=== PATIENT | female | born 1945 | race Caucasian/White ===

== ENCOUNTER → 2016-11-19 | Outpatient (CLI) | payer MEDICARE ==
[~2016-11-19] MED LIST: AGM875T PO; AMOX875T2 PO; ASPI-84 PO; ATOR10TA PO; CHLO4TAB PO; CYCL10TA9 PO; GLYB5TAB3 PO; INSU100C7 SQ; IRB150T; IRBE1TAB15 PO; MECL-124 PO; MTF500T PO; MTP25TSR PO; NF-CIPDEC LEFT EAR; NFVALS90T; OLME20TA5 PO; ROSU5TAB PO; SULF1TAB38 PO; TRAM50TA2 PO
[2016-11-19 12:12] LABS: BASOPHILS % (AUTO) 0 % (0-10); EOSINOPHILS # (AUTO) 0.2 10^3/uL (0.0-0.3); EOSINOPHILS % (AUTO) 2 % (0-10); LYMPHOCYTES # (AUTO) 1.8 X 10^3 (1.0-4.0); LYMPHOCYTES % (AUTO) 24 % (12-44); MEAN CORPUSCULAR HEMOGLOBIN 29 PG (25-34); MEAN CORPUSCULAR HGB CONC 35 G/DL (32-36); MEAN CORPUSCULAR VOLUME 85 FL (80-99); MEAN PLATELET VOLUME 10.9 FL (7.4-10.4); MONOCYTES # (AUTO) 0.4 X 10^3 (0.0-1.0); MONOCYTES % (AUTO) 5 % (0-12); NEUTROPHILS # (AUTO) 5.3 X 10^3 (1.8-7.8); NEUTROPHILS % (AUTO) 69 % (42-75); PLATELET COUNT 158 10^3/uL (130-400); RED CELL DISTRIBUTION WIDTH 14.6 % (10.0-14.5); WHITE BLOOD COUNT 7.7 10^3/uL (4.3-11.0)
[2016-11-19 12:33] LABS: BILIRUBIN,TOTAL 0.4 MG/DL (0.1-1.0); CALCIUM 9.9 MG/DL (8.5-10.1); CREATININE SERUM 0.93 MG/DL (0.60-1.30); POTASSIUM 4.2 MMOL/L (3.6-5.0); TOTAL PROTEIN 7.9 G/DL (6.4-8.2)
--- NOTE | 2016-11-19 12:47 | Diagnostic Imaging Report ---
INDICATION: Cough x1 month. EXAMINATION: PA and lateral chest. FINDINGS: Heart size and pulmonary vascularity are normal. The lungs are clear. There are no effusions or pneumothoraces. IMPRESSION: Negative chest. Dictated by: Dictated on workstation # [id number]
== END ==
LOC: RAD 11:34
PROVIDERS: ATTEND Family Medicine
DX: R05 Cough (principal)
CPT/HCPCS: 36415; 71020; 80053; 85025; 87324; 87449

== ENCOUNTER 2017-01-20 08:50 | Emergency (ER) | payer MEDICARE ==
[~2017-01-20] VITALS: Ht 157.5 cm; Wt 76.2 kg
[2017-01-20] MEDS ORDERED: ENAL20TA (09:06)
--- NOTE | 2017-01-20 09:11 | ED General ---
General Chief Complaint: Dizziness/Syncope Stated Complaint: DIZZINESS, THINKS BP IS HIGH Source of Information: Patient History of Present Illness Time Seen by Provider: 09:10 Initial Comments PT ARRIVES VIA POV FROM HOME C/O DIZZINESS SINCE WAKING AT 0330 STATES IS A SPINNING SENSATION NO HEADACHE NO VISION CHANGES NO PARESTHESIAS OR MOTOR DEFICITS NO CHEST PAIN, SHORTNESS OF BREATH OR PALPITATIONS NO FEVER NO RECENT ILLNESS, URI/SINUS SYMPTOMS HAS HISTORY OF THE SAME, AND HAS ANTIVERT BUT DID NOT TAKE ANY PT IS DIABETIC AND BLOOD SUGAR AT 0330 WAS 225--TOOK ALL OF HER REGULAR MEDICATIONS AT THAT TIME. PCP: DR. ROSAS Allergies and Home Medications Allergies Coded Allergies: No Known Drug Allergies (Unverified , 02/13/10) Home Medications Aspirin 81 Mg Tablet.dr, 81 MG PO DAILY, Ref 0 (Reported) Enalapril Maleate 20 Mg Tablet, #180 (Reported) Meclizine Hcl 25 Mg Tab, 25 MG PO TID PRN, Ref 0 (Reported) Metformin Hcl 500 Mg Tablet, 2 EACH PO BID WITH MEALS, Ref 0 (Reported) Metoprolol Succinate 25 Mg Tab.sr.24h, 1 EACH PO DAILY, #30 Prescribed by: HARIKA BURKS on 07/14/12 1729 Rosuvastatin Calcium 5 Mg Tablet, 5 MG PO DAILY, (Reported) Scopolamine 1 Each Patch.td72, 1 EACH TD Q72 HOURS, #3 Prescribed by: WILY KLEIN on 01/20/17 1012 Constitutional: see HPI, No diaphoresis, dizziness, No fever EENTM: no symptoms reported Respiratory: no symptoms reported Cardiovascular: no symptoms reported Gastrointestinal: no symptoms reported Genitourinary: no symptoms reported Musculoskeletal: no symptoms reported Skin: no symptoms reported Psychiatric/Neurological: No Symptoms Reported Hematologic/Lymphatic: No Symptoms Reported Immunological/Allergic: no symptoms reported Past Kfdzrdk-Yhaijg-Fwxbce Hx Patient Social History Alcohol Use: Occasionally Uses Recreational Drug Use: No Smoking Status: Never a Smoker Recent Foreign Travel: No Contact w/Someone Who Travel: No Recent Hopitalizations: No Immunizations Up To Date Date of Pneumonia Vaccine: May 23, 2012 Date of Influenza Vaccine: Feb 16, 2012 Seasonal Allergies Seasonal Allergies: No Surgeries HX Surgeries: No Respiratory Hx Respiratory Disorders: No Cardiovascular Hx Cardiac Disorders: Yes Cardiac Disorders: High Cholesterol, Hypertension, Irregular Heartbeat Neurological Hx Neurological Disorders: Yes Neurological Disorders: Vertigo Reproductive System Hx Reproductive Disorders: No Genitourinary Hx Genitourinary Disorders: Yes Genitourinary Disorders: Kidney Infection Gastrointestinal Hx Gastrointestinal Disorders: No Musculoskeletal Hx Musculoskeletal Disorders: No Endocrine Hx Endocrine Disorders: Yes Endocrine Disorders: Diabetes, Non-Insulin dep HEENT HX ENT Disorders: No Loss of Vision: Bilateral Hearing Impairment: Denies Cancer Hx Cancer: No Psychosocial Hx Psychiatric Problems: No Integumentary HX Skin/Integumentary Disorder: No Blood Transfusions Hx Blood Disorders: No Adverse Reaction to a Blood Tr: No Physical Exam Vital Signs Vital Sign - Last 12Hours 01/20/17 08:54 Temp 96.9 Pulse 81 Resp 18 B/P (MAP) 160/70 Pulse Ox 97 O2 Delivery Room Air Capillary Refill : General Appearance: No Apparent Distress, WD/WN, Other (WALKS WITHOUT DIFFICULTY) HEENT: PERRL/EOMI, TMs Normal, Normal ENT Inspection, Pharynx Normal Neck: Full Range of Motion, Normal Inspection, Non Tender, Supple Respiratory: Normal Breath Sounds, No Accessory Muscle Use, No Respiratory Distress Cardiovascular: Regular Rate, Rhythm, No Murmur, Normal Peripheral Pulses Gastrointestinal: Normal Bowel Sounds, No Organomegaly, No Pulsatile Mass, Non Tender, Soft Extremity: Normal Capillary Refill, Normal Inspection, Normal Range of Motion, Non Tender, No Calf Tenderness, No Pedal Edema Neurologic/Psychiatric: Alert, Oriented x3, No Motor/Sensory Deficits, Normal Mood/Affect, development representative II-XII Norm as Tested, No Abnormal Cerebellar Tests Reflexes: 2+ Bicep (R), 2+ Bicep (L), 2+ Knee (R), 2+ Knee (L) Skin: Normal Color, Warm/Dry Progress/Results/Core Measures Results/Orders Lab Results Laboratory Tests Test 01/20/17 09:30 Range/Units White Blood Count 8.6 4.3-11.0 10^3/uL Red Blood Count 5.07 4.35-5.85 10^6/uL Hemoglobin 14.9 11.5-16.0 G/DL Hematocrit 43 35-52 % Mean Corpuscular Volume 86 80-99 FL Mean Corpuscular Hemoglobin 29 25-34 PG Mean Corpuscular Hemoglobin Concent 34 32-36 G/DL Red Cell Distribution Width 14.2 10.0-14.5 % Platelet Count 160 130-400 10^3/uL Mean Platelet Volume 10.8 H 7.4-10.4 FL Neutrophils (%) (Auto) 66 42-75 % Lymphocytes (%) (Auto) 25 12-44 % Monocytes (%) (Auto) 6 0-12 % Eosinophils (%) (Auto) 3 0-10 % Basophils (%) (Auto) 1 0-10 % Neutrophils # (Auto) 5.7 1.8-7.8 X 10^3 Lymphocytes # (Auto) 2.2 1.0-4.0 X 10^3 Monocytes # (Auto) 0.5 0.0-1.0 X 10^3 Eosinophils # (Auto) 0.2 0.0-0.3 10^3/uL Basophils # (Auto) 0.0 0.0-0.1 10^3/uL Prothrombin Time 13.8 12.2-14.7 SEC INR Comment 1.1 0.8-1.4 Activated Partial Thromboplast Time 27 24-35 SEC Sodium Level 139 135-145 MMOL/L Potassium Level 4.4 3.6-5.0 MMOL/L Chloride Level 104 98-107 MMOL/L Carbon Dioxide Level 22 21-32 MMOL/L Anion Gap 13 5-14 MMOL/L Blood Urea Nitrogen 12 7-18 MG/DL Creatinine 0.83 0.60-1.30 MG/DL Estimat Glomerular Filtration Rate > 60 BUN/Creatinine Ratio 14 Glucose Level 253 H 70-105 MG/DL Calcium Level 9.9 8.5-10.1 MG/DL Magnesium Level 1.7 L 1.8-2.4 MG/DL Total Bilirubin 0.5 0.1-1.0 MG/DL Aspartate Amino Transf (AST/SGOT) 28 5-34 U/L Alanine Aminotransferase (ALT/SGPT) 21 0-55 U/L Alkaline Phosphatase 51 40-136 U/L Troponin I < 0.30 <0.30 NG/ML Total Protein 7.7 6.4-8.2 GM/DL Albumin 3.9 3.2-4.5 GM/DL My Orders Orders - WILY KLEIN DO Saline Lock/Iv-Start (01/20/17 09:11) Ekg Tracing (01/20/17 09:11) Monitor-Rhythm Ecg Trace Only (01/20/17 09:11) Cbc With Automated Diff (01/20/17 09:11) Comprehensive Metabolic Panel (01/20/17 09:11) Magnesium (01/20/17 09:11) Protime With Inr (01/20/17 09:11) Partial Thromboplastin Time (01/20/17 09:11) Troponin I (01/20/17 09:11) Ct Head Wo (01/20/17 09:11) Meclizine Tablet (Antivert Tablet) (01/20/17 09:45) Scopolamine Patch (Transderm-Scop Patch) (01/20/17 09:45) Vital Signs/I&O Progress Note : Progress Note SYMPTOMS IMPROVED AT DISMISSAL ECG Initial ECG Impression Time: 09:20 Initial ECG Rate: 63 Initial ECG Rhythm: Normal Sinus Initial ECG Comparisson: Unchanged Diagnostic Imaging Comments CT HEAD --NO ACUTE PROCESS, CHRONIC CHANGES, PER RADIOLOGIST REPORT @ 1007 Reviewed: Reviewed by Me Departure Impression Impression: Primary Impression: Vertigo Additional Impressions: NIDDM HTN (hypertension) Disposition: 01 HOME, SELF-CARE Condition: Stable Departure-Patient Inst. Referrals: FRANCOIS ROSAS DO (PCP/Family) Primary Care Physician Patient Instructions: Vertigo (a Type of Dizziness) (DC) Add. Discharge Instructions: TAKE YOUR REGULAR MEDICATIONS PRESCRIBED TAKE YOUR ANTIVERT 2 PILLS EVERY 4 HOURS NEEDED FOR DIZZINESS SLOW POSITION CHANGES LOTS OF CLEAR LIQUIDS FOLLOW UP WITH YOUR DR IN 2-3 DAYS IF NO BETTER All discharge instructions reviewed with patient and/or family. Voiced understanding. Scripts Scopolamine (Transderm-Scop) 1 Each Patch.td72 1 EACH TD Q72 HOURS for Dizziness, #3 PATCH Prov: WILY KLEIN DO 01/20/17 WILY KLEIN DO Jan 20, 2017 09:11
[2017-01-20 09:37] LABS: BASOPHILS % (AUTO) 1 % (0-10); EOSINOPHILS # (AUTO) 0.2 10^3/uL (0.0-0.3); EOSINOPHILS % (AUTO) 3 % (0-10); LYMPHOCYTES # (AUTO) 2.2 X 10^3 (1.0-4.0); LYMPHOCYTES % (AUTO) 25 % (12-44); MEAN CORPUSCULAR HEMOGLOBIN 29 PG (25-34); MEAN CORPUSCULAR HGB CONC 34 G/DL (32-36); MEAN CORPUSCULAR VOLUME 86 FL (80-99); MEAN PLATELET VOLUME 10.8 FL (7.4-10.4); MONOCYTES # (AUTO) 0.5 X 10^3 (0.0-1.0); MONOCYTES % (AUTO) 6 % (0-12); NEUTROPHILS # (AUTO) 5.7 X 10^3 (1.8-7.8); NEUTROPHILS % (AUTO) 66 % (42-75); PLATELET COUNT 160 10^3/uL (130-400); RED BLOOD COUNT 5.07 10^6/uL (4.35-5.85); RED CELL DISTRIBUTION WIDTH 14.2 % (10.0-14.5); WHITE BLOOD COUNT 8.6 10^3/uL (4.3-11.0)
[2017-01-20] MEDS ORDERED: SCOPOLAMINE 1.5 MG (TRANSDERM-SCOP) PATCH TD ONE (09:45)
[2017-01-20] MEDS ORDERED: MECLIZINE 25 MG (ANTIVERT) TAB PO ONE (09:45)
[2017-01-20 09:46] LABS: INR 1.1 (0.8-1.4); PROTHROMBIN TIME PATIENT 13.8 SEC (12.2-14.7)
[2017-01-20 09:57] LABS: ALANINE AMINOTRANSFERASE 21 U/L (0-55); ALBUMIN 3.9 GM/DL (3.2-4.5); ANION GAP 13 MMOL/L (5-14); ASPARTATE AMINO TRANSFERASE 28 U/L (5-34); BILIRUBIN,TOTAL 0.5 MG/DL (0.1-1.0); BLOOD UREA NITROGEN 12 MG/DL (7-18); BUN/CREATININE RATIO 14; CALCIUM 9.9 MG/DL (8.5-10.1); CARBON DIOXIDE 22 MMOL/L (21-32); CHLORIDE 104 MMOL/L (98-107); CREATININE SERUM 0.83 MG/DL (0.60-1.30); GFR ESTIMATED > 60; GLUCOSE 253 MG/DL (70-105); MAGNESIUM 1.7 MG/DL (1.8-2.4); POTASSIUM 4.4 MMOL/L (3.6-5.0); SODIUM 139 MMOL/L (135-145); TOTAL PROTEIN 7.7 GM/DL (6.4-8.2)
[2017-01-20 10:03] LABS: TROPONIN I < 0.30 NG/ML (<0.30)
--- NOTE | 2017-01-20 10:03 | Diagnostic Imaging Report ---
PROCEDURE: CT head without contrast. TECHNIQUE: Multiple contiguous axial images were obtained through the brain without the use of intravenous contrast. INDICATION: Dizziness and unsteady gait. Comparison: None available. Findings: No hyperdense hemorrhage or space-occupying mass. No hydrocephalus or midline shift. Symmetric prominence of the ventricles and cortical sulci is compatible with age-appropriate atrophy. No isolated lobar atrophy. No territorial loss of monreal-white matter differentiation to indicate acute/subacute infarct. Minimal periventricular white matter hypoattenuation is likely due to chronic microvascular ischemic disease. The mastoid air cells are clear. Paranasal sinuses are normal. No focal osseous abnormality of the calvarium. Impression: No acute intracranial process. Dictated by: Dictated on workstation # [id number]
[2017-01-20] MEDS ORDERED: SCOP1PAT TD (10:12)
[2017-01-20 10:47] VITALS: BP 157/89
== END 2017-01-20 10:47 | disposition home or self-care (01) ==
LOC: EDUNIT# 08:50 → ER 08:52
DX: R42 Dizziness and giddiness (principal); E11.9 Type 2 diabetes mellitus without complications; I10 Essential (primary) hypertension; H54.7 Unspecified visual loss; E78.00 Pure hypercholesterolemia, unspecified; Z79.82 Long term (current) use of aspirin
CPT/HCPCS: 36415; 70450; 80053; 83735; 84484; 85025; 85610; 85730; 93041